=== PATIENT | female | born 1960 | race Caucasian/White ===

== ENCOUNTER 2016-11-27 16:36 | Emergency (ER) | payer OTHER ==
[2016-11-27 20:58] LABS: HEMOGLOBIN 13.7 gm/dl (12.3-15.3); RED BLOOD COUNT 4.45 M/UL (4.00-5.10)
[2016-11-27 21:22] LABS: BUN/CREATININE RATIO 22 (0-10)
== END 2016-11-28 00:10 | disposition home or self-care (01) ==
LOC: EDBD 16:36 → ER1 16:36
PROVIDERS: Specialist/Technologist Athletic Trainer
DX: A41.9 Sepsis, unspecified organism (principal); J18.9 Pneumonia, unspecified organism; T78.40XA Allergy, unspecified, initial encounter; X58.XXXA Exposure to other specified factors, initial encounter; I10 Essential (primary) hypertension; J44.9 Chronic obstructive pulmonary disease, unspecified; F17.210 Nicotine dependence, cigarettes, uncomplicated; Z88.0 Allergy status to penicillin; Z88.5 Allergy status to narcotic agent; Z79.899 Other long term (current) drug therapy
CPT/HCPCS: 36415; 36600; 71010; 80053; 81001; 82550; 82553; 82803; 83605; 84484; 85025; 87040; 87086; 93005; 94640; 94664; 96374; 99285; J1885; J1956; Q0163